=== PATIENT | female | born 1965 | race Caucasian/White ===

== ENCOUNTER 2018-02-25 22:47 | Emergency (ER) | payer BC ==
[2018-02-25] MEDS: FLUCONAZOLE 150 MG TAB PO (23:31)
== END 2018-02-25 23:31 | disposition home or self-care (01) ==
LOC: E/R 23:31
DX: B37.3 Candidiasis of vulva and vagina (principal)
CPT/HCPCS: 99283

== ENCOUNTER 2018-07-30 05:41 | Emergency (ER) | payer SELFPAY, BC | END 2018-07-30 06:49 | disposition home or self-care (01) | LOC: FTE 05:41 | DX: M54.6 Pain in thoracic spine (principal) | CPT/HCPCS: 99283 ==